=== PATIENT | female | born 1995 | race Caucasian/White ===

== ENCOUNTER 2017-09-23 11:30 | Emergency (ER) | payer OTHER, MEDICAID ==
[2017-09-23 11:45] VITALS: BP 119/92
[2017-09-23] MEDS ORDERED: NS 1,000 ML IV ONE (11:52)
[2017-09-23] MEDS ORDERED: ONDANSETRON 4 MG/2 ML VIAL IVP ONE (11:52)
--- NOTE | 2017-09-23 12:02 | EDPHY ---
H & P Stated Complaint: red bloody mucus diarrhea gen abd pain x 2 weeks, N/V Time Seen by Provider: 09/23/17 11:52 HPI/ROS: CHIEF COMPLAINT: Bloody diarrhea HISTORY OF PRESENT ILLNESS: The patient is a 22-year-old college student who comes to the emergency department her mom complaining of bloody red, mucousy diarrhea for the last 2 weeks. She states that this is happened intermittently in the past. She does not restrict her diet. She has not had a fever. No abdominal pain. She vomited yesterday nonbloody. No urinary symptoms. No vaginal symptoms. She denies risk of . No hemorrhoids. REVIEW OF SYSTEMS: Constitutional: denies: chills, fever, recent illness, recent injury EENTM: denies: blurred vision, double vision, nose congestion Respiratory: denies: cough, shortness of breath Cardiac: denies: chest pain, irregular heart rate, lightheadedness, palpitations Gastrointestinal/Abdominal: See HPI denies: abdominal pain, Genitourinary: denies: dysuria, frequency, hematuria, pain Musculoskeletal: denies: joint pain, muscle pain Skin: denies: lesions, rash, jaundice, bruising Neurological: denies: headache, numbness, paresthesia, tingling, dizziness, weakness Hematologic/Lymphatic: denies: blood clots, easy bleeding, easy bruising Immunologic/allergic: denies: HIV/AIDS, transplant EXAM: GENERAL: Well-appearing, well-nourished and in no acute distress. HEAD: Atraumatic, normocephalic. EYES: Pupils equal round and reactive to light, extraocular movements intact, sclera anicteric, conjunctiva are normal. ENT: TMs normal, nares patent, oropharynx clear without exudates. Moist mucous membranes. NECK: Normal range of motion, supple without lymphadenopathy or JVD. LUNGS: Breath sounds clear to auscultation bilaterally and equal. No wheezes rales or rhonchi. HEART: Regular rate and rhythm without murmurs, rubs or gallops. ABDOMEN: Soft, nontender, normoactive bowel sounds. No guarding, no rebound. No masses appreciated. Rectal: No visible hemorrhoids, normal tone, heme-negative. BACK: No CVA tenderness, no spinal tenderness, step-offs or deformities EXTREMITIES: Normal range of motion, no pitting or edema. No clubbing or cyanosis. NEUROLOGICAL: Cranial nerves II through XII grossly intact. Normal speech, normal gait. 5/5 strength, normal movement in all extremities, normal sensation PSYCH: Normal mood, normal affect. SKIN: Warm, dry, normal turgor, no visible rashes or lesions. Source: Patient Exam Limitations: No limitations - Medical/Surgical History Hx Asthma: No Hx Chronic Respiratory Disease: No Hx Diabetes: No Hx Cardiac Disease: No Hx Renal Disease: No Hx Cirrhosis: No Hx Alcoholism: No Hx HIV/AIDS: No Hx Splenectomy or Spleen Trauma: No Other PMH: episodes of bloody diarrhea in past -no work up done - Family History Significant Family History: No pertinent family hx - Social History Smoking Status: Never smoked Alcohol Use: None Constitutional: Initial Vital Signs Temperature (C) 36.4 C 09/23/17 11:35 Heart Rate 129 H 09/23/17 11:35 Respiratory Rate 18 09/23/17 11:35 Blood Pressure 119/92 H 09/23/17 11:35 O2 Sat (%) 94 09/23/17 11:35 O2 Delivery Mode Room Air Allergies/Adverse Reactions: No Known Allergies Allergy (Unverified 09/23/17 11:34) Home Medications: Medication Instructions Recorded NK [No Known Home Meds] 09/23/17 Medical Decision Making ED Course/Re-evaluation: The patient has symptoms consistent with ulcerative colitis or Crohn's or irritable bowel. Will obtain lab work. I feel that she would benefit from colonoscopy. I will refer her to GI. 12:40 p.m. the patient is doing well. No abdominal pain or tenderness. No diarrhea here in the ER. Discussed her lab work. I will have her follow up with GI. Differential Diagnosis: Partial list of the Differential diagnosis considered include but were not limited to; ulcerative colitis, hemorrhoids, Crohn's disease, dietary allergy, gastritis and although unlikely based on the history and physical exam, I also considered ischemia, volvulus, diverticulitis, perforation, urinary tract infection, vaginal bleeding, ovarian cyst, . I discussed these differential diagnoses and the plan with the patient as well as the usual and expected course. The patient understands that the diagnosis is provisional and that in medicine we are not always correct and that further workup is often warranted. Usual and customary warnings were given. All of the patient's questions were answered. The patient was instructed to return to the emergency department should the symptoms at all worsen or return, otherwise to followup with the physician as we discussed. - Data Points Laboratory Results: Laboratory Results 09/23/17 11:50 09/23/17 11:50 09/23/17 09/23/17 09/23/17 11:50 11:50 11:50 WBC 14.09 10^3/uL H 10^3/uL (3.80-9.50) RBC 5.58 10^6/uL H 10^6/uL (4.18-5.33) Hgb 16.6 g/dL H g/dL (12.6-16.3) Hct 46.5 % % (38.0-47.0) MCV 83.3 fL fL (81.5-99.8) MCH 29.7 pg pg (27.9-34.1) MCHC 35.7 g/dL g/dL (32.4-36.7) RDW 14.7 % % (11.5-15.2) Plt Count 434 10^3/uL H 10^3/uL (150-400) Sodium 137 mEq/L mEq/L (135-145) Potassium 3.5 mEq/L mEq/L (3.3-5.0) Chloride 90 mEq/L L mEq/L (97-110) Carbon Dioxide 23 mEq/l mEq/l (22-31) Anion Gap 24 mEq/L H mEq/L (8-16) BUN 15 mg/dL mg/dL (7-23) Creatinine 0.8 mg/dL mg/dL (0.6-1.0) Estimated GFR > 60 Glucose 97 mg/dL mg/dL (70-100) Calcium 10.1 mg/dL mg/dL (8.5-10.4) Beta HCG, Qual NEGATIVE Medications Given: Discontinued Medications Sodium Chloride (Ns) 1,000 mls @ 0 mls/hr IV ONCE ONE; Wide Open PRN Reason: Protocol Stop: 09/23/17 11:53 Last Admin: 09/23/17 12:00 Dose: 1,000 mls Ondansetron HCl (Zofran) 4 mg IVP EDNOW ONE Stop: 09/23/17 11:53 Last Admin: 09/23/17 12:01 Dose: 4 mg Departure - Departure Disposition: Home, Routine, Self-Care Clinical Impression: Bloody diarrhea Condition: Fair Instructions: Acute Diarrhea (ED) Referrals: NONE *PRIMARY CARE P,. [Primary Care Provider] - As per Instructions Raul Shrestha MD [Medical Doctor] - 2-3 days, call for appt.
== END 2017-09-23 12:30 | disposition home or self-care (01) ==
DX: K92.1 Melena (principal); E86.9 Volume depletion, unspecified
CPT/HCPCS: 96374; J2405

== ENCOUNTER 2017-09-25 18:15 | Inpatient (IN) | payer OTHER, MEDICAID ==
--- NOTE | 2017-09-25 18:32 | EDPHY ---
H & P Stated Complaint: abd pain Time Seen by Provider: 09/25/17 18:32 - Personal History LMP (Females 10-55): 1-7 Days Ago Current Tetanus/Diphtheria Vaccine: No Current Tetanus Diphtheria and Acellular Pertussis (TDAP): No - Medical/Surgical History Hx Asthma: No Hx Chronic Respiratory Disease: No Hx Diabetes: No Hx Cardiac Disease: No Hx Renal Disease: No Hx Cirrhosis: No Hx Alcoholism: No Hx HIV/AIDS: No Hx Splenectomy or Spleen Trauma: No Other PMH: episodes of bloody diarrhea in past -no work up done - Social History Smoking Status: Never smoked Constitutional: Initial Vital Signs Temperature (C) 36.5 C 09/25/17 18:21 Heart Rate 128 H 09/25/17 18:21 Respiratory Rate 16 09/25/17 18:21 Blood Pressure 92/71 L 09/25/17 18:21 O2 Sat (%) 95 09/25/17 18:21 O2 Delivery Mode Room Air Allergies/Adverse Reactions: No Known Allergies Allergy (Unverified 09/25/17 18:21) Home Medications: Medication Instructions Recorded NK [No Known Home Meds] 09/23/17 Medical Decision Making - Diagnostics Imaging Results: Imaging Impressions Abdomen CT 09/25/17 18:42 Impression: 1. Diffuse colitis worse in the ascending and transverse colon suggesting ulcerative colitis versus nonspecific infectious/inflammatory colitis. 2. No CT evidence of appendicitis, abscess or bowel obstruction. Findings and recommendations discussed with Emergency Department physician, Carlos Alberto Gutierrez MD, at 1919 hour, 09/25/2017. Final report concurs with initial preliminary interpretation. Imaging: Discussed imaging studies w/ freight caller Radiologist, I viewed and interpreted images myself ED Course/Re-evaluation: CHIEF COMPLAINT: Abdominal pain, bloody diarrhea HISTORY OF PRESENT ILLNESS: The patient is a 22 y/o female complaining of worsening abdominal pain, bloody diarrhea, decreased appetite, and nausea for 2 months. At it's worse, she is having a bowel movement every hour; this is a mixture of blood and fecal material. On 09/23/17, 2 days ago, she was seen in this emergency department and given IV fluids and Zofran for her symptoms. She was advised to follow up with a e learning specialist, but she has not done this yet. Today the pain was still not improved, so she presented to an urgent care. The physician at the urgent care, Dr. Adrian Harris, advised that she present to the emergency department again to be admitted. She is currently having abdominal and low back pain. Denies having imaging or stool sample studies preformed. Denies receiving a steroid or antibiotic prescription. Denies history of inflammatory bowel disease, Chron's Disease, ulcerative colitis. Denies shortness of breath, chest pain, urinary complaints, fever, paresthesias, numbness. REVIEW OF SYSTEMS: A 10 point review of systems was performed and is negative with the exception of the elements mentioned in the history of present illness. PHYSICAL EXAM: HR, BP, O2 Sat, RR. Temp noted General Appearance: Alert, well hydrated, appropriate, and non-toxic appearing. Head: Atraumatic without scalp tenderness or obvious injury Eyes: Conjunctival hemorrhage. Pupils equal, round, reactive to light and accommodation, EOMI, no injection. Ears: Clear bilaterally, no perforation, normal landmarks Nose: Atraumatic, no rhinorrhea, clear. Throat: There is no erythema or exudates, no lesions, normal tonsils, mucus membranes moist. Neck: Supple, nontender, no lymphadenopathy. Respiratory: No retractions, no distress, no wheezes, and no accessory muscle use. Lungs are clear to auscultation bilaterally. Cardiovascular: Regular rate and rhythm, no murmurs, rubs, or gallops. Good capillary refill all extremities. Gastrointestinal: Lower abdominal tenderness to palpation. Abdomen is soft, non -distended, no masses, no rebound, no guarding, no peritoneal signs. Musculoskeletal: Normal active ROM of all extremities, atraumatic. Neurological: Alert, appropriate, and interactive. Nonfocal neuro. Skin: No rashes, good turgor, no nodules on palpation. Past medical history: Denies Past surgical history: Denies Family history: Denies Social history: Mother at bedside, live in [place], [facility] DIAGNOSTICS/PROCEDURES/CRITICAL CARE TIME: Abdominopelvic CT: Diffuse ascending, transverse, and descending colitis. No abscesses or perforation. DIFFERENTIAL DIAGNOSIS: The differential diagnosis for the patient's abdominal pain included but was not limited to ovarian cyst, pelvic inflammatory disease, ovarian torsion, urinary tract infection, ectopic , cholecystitis, and appendicitis. MEDICAL DECISION MAKING: The patient is a 22 y/o female presenting with worsening abdominal pain, bloody diarrhea, decreased appetite, and nausea for 2 months. She was seen in the emergency department and urgent care within the last 2 days but has not had any imaging studies preformed. Labs and abdominopelvic CT ordered. 1L IV NS, 4mg IV Zofran, and 0.5mg IV Dilaudid administered. 1916: Spoke with Dr. Aquino, radiologist, patient has diffuse ascending, transverse, and descending colitis. No abscesses or perforation. Gastroenterology will be called. 1922: Consulted with Dr. Shrestha, e learning specialist, regarding patient. He agrees to consult on this patient and preform and endoscopy tomorrow. 10mg IV Decadron administered. Additional labs ordered. 1926: Reassessed patient and discussed laboratory and imaging findings. I have also discussed plan for admission which the patient and her mother are comfortable with. 1941: Consulted with hospitalist service, Dr. Mcfadden accepts admission of this patient. - Data Points Laboratory Results: Laboratory Results 09/25/17 19:07 09/25/17 19:07 09/25/17 09/25/17 09/25/17 19:34 19:08 19:07 WBC RBC Hgb POC Hgb 13.6 gm/dL gm/dL (12.6-16.3) Hct POC Hct 40 % % (38-47) MCV MCH MCHC RDW Plt Count MPV Neut % (Auto) Lymph % (Auto) [place] % (Auto) Eos % (Auto) Baso % (Auto) Nucleat RBC Rel Count Absolute Neuts (auto) Absolute Lymphs (auto) Absolute Monos (auto) Absolute Eos (auto) Absolute Basos (auto) Absolute Nucleated RBC Immature Gran % Immature Gran # Platelet Estimate POC Sodium 134 mEq/L L mEq/L (135-145) Sodium POC Potassium 2.4 mEq/L L* mEq/L (3.3-5.0) Potassium POC Chloride 93 mEq/L L mEq/L (97-110) Chloride Carbon Dioxide Anion Gap POC BUN 6 mg/dL L mg/dL (7-23) BUN Creatinine POC Creatinine 0.7 mg/dL mg/dL (0.6-1.0) Estimated GFR Glucose POC Glucose 88 mg/dL mg/dL (70-100) Calcium Iron TIBC Iron Saturation Ferritin Total Bilirubin Conjugated Bilirubin Unconjugated Bilirubin AST ALT Alkaline Phosphatase C-Reactive Protein Total Protein Albumin Lipase Beta HCG, Qual NEGATIVE Urine Color Pending Urine Appearance Pending Urine pH Pending Ur Specific [place] Pending Urine Protein Pending Urine Ketones Pending Urine Blood Pending Urine Nitrate Pending Urine Bilirubin Pending Urine Urobilinogen Pending Ur Leukocyte Esterase Pending Urine Glucose Pending 09/25/17 09/25/17 19:07 19:07 WBC 11.43 10^3/uL H 10^3/uL (3.80-9.50) RBC 4.49 10^6/uL 10^6/uL (4.18-5.33) Hgb 13.5 g/dL g/dL (12.6-16.3) POC Hgb Hct 37.4 % L % (38.0-47.0) POC Hct MCV 83.3 fL fL (81.5-99.8) MCH 30.1 pg pg (27.9-34.1) MCHC 36.1 g/dL g/dL (32.4-36.7) RDW 14.7 % % (11.5-15.2) Plt Count 291 10^3/uL 10^3/uL (150-400) MPV 11.2 fL fL (8.7-11.7) Neut % (Auto) Pending Lymph % (Auto) Pending Dallas % (Auto) Pending Eos % (Auto) Pending Baso % (Auto) Pending Nucleat RBC Rel Count Pending Absolute Neuts (auto) Pending Absolute Lymphs (auto) Pending Absolute Monos (auto) Pending Absolute Eos (auto) Pending Absolute Basos (auto) Pending Absolute Nucleated RBC Pending Immature Gran % Pending Immature Gran # Pending Platelet Estimate Pending POC Sodium Sodium 134 mEq/L L mEq/L (135-145) POC Potassium Potassium Pending POC Chloride Chloride 92 mEq/L L mEq/L (97-110) Carbon Dioxide 21 mEq/l L mEq/l (22-31) Anion Gap 21 mEq/L H mEq/L (8-16) POC BUN BUN 8 mg/dL mg/dL (7-23) Creatinine 0.6 mg/dL mg/dL (0.6-1.0) POC Creatinine Estimated GFR > 60 Glucose 82 mg/dL mg/dL (70-100) POC Glucose Calcium 8.8 mg/dL mg/dL (8.5-10.4) Iron Pending TIBC Pending Iron Saturation Pending Ferritin Pending Total Bilirubin 0.7 mg/dL mg/dL (0.1-1.4) Conjugated Bilirubin 0.4 mg/dL mg/dL (0.0-0.5) Unconjugated Bilirubin 0.3 mg/dL mg/dL (0.0-1.1) AST 22 IU/L IU/L (14-46) ALT 36 IU/L IU/L (9-52) Alkaline Phosphatase 44 IU/L IU/L (38-126) C-Reactive Protein Pending Total Protein 6.1 g/dL L g/dL (6.3-8.2) Albumin 3.5 g/dL g/dL (3.5-5.0) Lipase 103 IU/L IU/L (23-300) Beta HCG, Qual Urine Color Urine Appearance Urine pH Ur Specific [place] Urine Protein Urine Ketones Urine Blood Urine Nitrate Urine Bilirubin Urine Urobilinogen Ur Leukocyte Esterase Urine Glucose Medications Given: Discontinued Medications Dexamethasone (Decadron Injection) 10 mg IVP EDNOW ONE Stop: 09/25/17 19:26 Last Admin: 09/25/17 19:39 Dose: 10 mg Hydromorphone HCl (Dilaudid) 0.5 mg IVP EDNOW ONE Stop: 09/25/17 18:43 Last Admin: 09/25/17 19:31 Dose: 0.5 mg Sodium Chloride (Ns) 1,000 mls @ 0 mls/hr IV EDNOW ONE; Wide Open PRN Reason: Protocol Stop: 09/25/17 18:43 Last Admin: 09/25/17 19:31 Dose: 1,000 mls Ondansetron HCl (Zofran) 4 mg IVP EDNOW ONE Stop: 09/25/17 18:43 Last Admin: 09/25/17 19:27 Dose: 4 mg Point of Care Test Results: 09/25/17 19:08 POC Sodium 134 L POC Potassium 2.4 L* POC Chloride 93 L POC BUN 6 L POC Creatinine 0.7 POC Glucose 88 Departure - Departure Disposition: [facility] Inpatient Acute Clinical Impression: Colitis Diarrhea Qualifiers: Diarrhea type: unspecified type Qualified Code(s): R19.7 - Diarrhea, unspecified Condition: Fair Referrals: NONE *PRIMARY CARE P,. [Primary Care Provider] - As per Instructions Report Scribed for: Carlos Alberto Gutierrez Report Scribed by: Haily Carr Date of Report: 09/25/17 Time of Report: 18:33
[2017-09-25] MEDS ORDERED: ONDANSETRON 4 MG/2 ML VIAL IVP ONE (18:42)
[2017-09-25] MEDS ORDERED: NS 1,000 ML IV ONE (18:42)
[2017-09-25] MEDS ORDERED: HYDROmorphONE/DILAUDID 2 MG/ML INJ IVP ONE (18:42)
[2017-09-25] MEDS ORDERED: IOPAMIDOL (ISOVUE-300) 100 ML BTL ONE (18:47)
[2017-09-25] MEDS ORDERED: HYDROmorphONE/DILAUDID 1 MG/ML INJ ONE (19:13)
[2017-09-25 19:14] LABS: PLATELET COUNT 291 10^3/uL (150-400)
[2017-09-25] MEDS ORDERED: DEXAMETHASONE 10 MG/ML VIAL IVP ONE (19:25)
[2017-09-25] MEDS ORDERED: PROTOCOL MAGNESIUM 1 DOSE IV PRN (20:15)
[2017-09-25] MEDS ORDERED: METOCLOPRAMIDE 10 MG/2 ML VIAL IVP PRN (20:15)
[2017-09-25] MEDS ORDERED: PEG 3350/NA SULF,BICARB,CL/KCL (GAVILYTE-G) 4000 ML BTL PO ONE (20:15)
[2017-09-25] MEDS ORDERED: PROTOCOL POTASSIUM 1 DOSE MISC PRN (20:15)
[2017-09-25] MEDS ORDERED: PROTOCOL K PHOSPHATE 1 DOSE IV PRN (20:15)
[2017-09-25] MEDS ORDERED: OXYCODONE/APAP 5/325 TAB PO PRN (20:16)
[2017-09-25] MEDS ORDERED: ACETAMINOPHEN 325 MG TAB PO PRN (20:16)
[2017-09-25] MEDS ORDERED: LORazepam 2 MG/ML INJ IVP PRN (20:16)
[2017-09-25] MEDS ORDERED: LORazepam 0.5 MG TAB PO PRN (20:16)
[2017-09-25] MEDS ORDERED: POTASSIUM CL 20 MEQ TAB ONE (20:51)
[2017-09-25] MEDS: POTASSIUM CL 20 MEQ TAB PO SCH (21:02)
[2017-09-25] MEDS ORDERED: MBX SOLN 30 ML BOTTLE PO PRN (21:57)
[2017-09-25] MEDS: PROMETHAZINE HCL 25 MG/ML INJ IVP PRN (21:58)
[2017-09-25] MEDS: NS 1,000 ML IV SCH (22:03)
[2017-09-25] MEDS: POTASSIUM Cl (KCl) 100 ML IV SCH ×2 (22:24→23:46)
--- NOTE | 2017-09-25 22:35 | GHP ---
[f rep st] HISTORY AND PHYSICAL DATE OF ADMISSION: 09/25/2017 CHIEF COMPLAINT: Bloody diarrhea. HISTORY: This is a 22-year-old female with no significant past medical history who comes in for the 2nd time to this ER complaining of abdominal pain and bloody diarrhea. Patient notes she has had thi s going on for at least 6 weeks to 2 months. She notes the diarrhea is profuse, and she is often goi ng to the bathroom at least once an hour. This can often be associated with severe abdominal pain. For the last several days it has been so bad that she has been basically unable to eat or drink anyth ing. She notes that every time she eats or drinks anything, she immediately has diarrhea and severe abdominal pain. 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 She states that it largely affects her hips and knees but has affected essentially all joints in her body. PAST MEDICAL HISTORY: Denies. PAST SURGICAL HISTORY: Denies. FAMILY HISTORY: Father of unknown causes. Per the mother, he while in retirement. She does have a grandmother with MS. Otherwise, 1 brother who is healthy. SOCIAL HISTORY: Patient recently graduated from college. She drinks occasionally. She is a nonsmok er. REVIEW OF SYSTEMS: 10-point review of systems obtained and negative except as per HPI. PHYSICAL EXAMINATION: VITAL SIGNS: BP 102/84, heart rate 100, respiratory rate 16, O2 sats 94% on r oom air, temperature is 37.0. GENERAL APPEARANCE: Thin female. She is awake and alert. She is in mild distress. EYES: Anicteric. HENT: Dry mucous membranes. CARDIOVASCULAR: Mildly ta tiffanie, regular. No MRG. PULMONARY: CTA bilaterally. ABDOMEN: Soft, decreased bowel sounds, mild te nderness to palpation diffusely. EXTREMITIES: No clubbing, cyanosis, or edema. SKIN: Warm, dry, w ell perfused. NEURO/PSYCH: Oriented, appropriate, pleasant. CLINICAL DATA: Labs reviewed and notable for white blood cell count of 11.4, hematocrit of 37.4, parker telets of 291. Chemistry is notable for a potassium of 2.7. LFTs are unremarkable. CRP elevated at 24.3. Urinalysis notable for a specific gravity of greater than 1.06, 1+ blood, 2+ ketones. Abdominal CT personally reviewed and interpreted, shows diffuse colitis worse in the ascending and tr ansverse colon, suggestive of ulcerative colitis versus nonspecific infectious/inflammatory colitis. ASSESSMENT AND PLAN: This is a 22-year-old female presenting with a couple months of bloody diarrhea and abdominal pain with abdominal CT concerning for inflammatory bowel disease. 1. Diffuse colitis. Again, imaging concerning for inflammatory bowel disease. Patient has had at [facility] 6 weeks to 2 months of symptoms along with longstanding complaints of joint pain, possibly relat ed to underlying inflammatory bowel disease. Gastroenterology has been consulted, and we will procee d with a colonoscopy in the morning. We will attempt to prep her tonight, although Dr. Shrestha is aware that this may not be possible. Gastrointestinal pathogen panel has been ordered and is currently pe nding. 2. Hypokalemia in the setting of poor oral intake with nausea and vomiting. We will replete. We wi ll monitor on telemetry overnight. 3. Anemia. This is mild in the setting of a couple months of bloody diarrhea as per above. We will continue to monitor. 4. Inpatient status: Patient will require greater than 48-hour stay for evaluation and management o f above. Patient is new to my care. Old records reviewed and summarized as per HPI and past medical history. Care plan reviewed with Dr. Gutierrez in the emergency department. Further history obtained from hansel ent's mother present at bedside. /[id number]/MODL
[2017-09-26] MEDS: POTASSIUM Cl (KCl) 100 ML IV SCH ×4 (01:30→17:54)
[2017-09-26 04:21] LABS: PLATELET COUNT 245 10^3/uL (150-400)
[2017-09-26] MEDS: NS 1,000 ML IV SCH (04:47)
--- NOTE | 2017-09-26 07:57 | GCON ---
[f rep st] CONSULTATION DATE OF CONSULTATION: 09/26/2017 CONSULTING PHYSICIAN: Javi Mcfadden MD REASON FOR CONSULTATION: Bloody diarrhea/abdominal pain. CHIEF COMPLAINT: Bloody diarrhea, abdominal pain. HISTORY OF PRESENT ILLNESS: The patient is a 22-year-old female with no significant past medical history, who presents to [facility] with complaints of diffuse abdominal pain as well as bloody diarrhea. The patient states that she has had symptoms for approximately 6 weeks which has gotten progressively worse. She is now going to the bathroom >15x each day She states there is blood in most of her stools. She came to the ER last week and blood work was taken and was discharge. She describes a crampy pain throughout her abdomen. This pain can last hours. Her symptoms are exacerbated by oral intake with no alleviating factors. She denies a family history of ulcerative colitis or Crohn disease. She denies any recent travel or sick contacts. She has had some joint pain recently. I am being asked by Dr. Mcfadden to evaluate this patient in consultation regarding her bloody diarrhea/abdominal pain. PAST MEDICAL HISTORY: None. SURGICAL HISTORY: None. MEDICATIONS: None. ALLERGIES: NKDA. FAMILY HISTORY: No history of ulcerative colitis or Crohn disease. SOCIAL HISTORY: Positive alcohol. No significant tobacco use. PHYSICAL EXAMINATION: VITALS: Blood pressure 95/66, temperature 36.8, respirations 16, heart rate 82. GENERAL: Awake, alert, oriented x3. No distress. HEENT: Anicteric sclerae. Moist mucosa. NECK: No JVD. CARDIOVASCULAR: Regular rate and rhythm. Positive S1, S2. No murmurs, rubs, or gallops. LUNGS: Clear to auscultation bilaterally. No wheezing, rales, or rhonchi. ABDOMEN: Positive tenderness to midepigastrium. No rebound. Positive bowel sounds. EXTREMITIES: No clubbing, cyanosis, or edema. NEUROLOGICAL: Cranial nerves 2 through 12 are grossly intact. PSYCH: Normal affect. SKIN: No rash. MUSCULAR: No obvious joint effusions. LABORATORY DATA: WBC 10.23, hemoglobin 11.4. ESR 10. Potassium 3.7. C- reactive protein 24.3. CT scan-colitis. ASSESSMENT/PLAN: 1. Bloody diarrhea-with colitis on CT starting at the rectum. Positive abdominal pain. At this time, I suspect that she has inflammatory bowel disease. I would recommend to proceed with unprepped flexible sigmoidoscopy for further evaluation. The risks, benefits, and alternatives of the procedure were discussed in great detail with the patient. The risks of infection, bleeding, perforation, sedation were discussed. All questions answered and informed consent was obtained. Recommend to obtain stool studies. Thank you for the consultation! /[id number]/MODL MTDD
--- NOTE | 2017-09-26 10:48 | PDMN ---
Medical Necessity Medical necessity: [facility] M565 inflammatory bowel disease A-2 days: persistent abd. pain with bloody diarrhea X 6 weeks, hypokalemia. ( 2.4) , anemia,( iron saturation- 14), H/H 11.4/32.1, + heme stool- CT concerning for inflammatory bowel disease, GI consult pending, further monitoring, and tx needed anticipate > 2 midnights.
[2017-09-26] MEDS ORDERED: MAG HYDROX PO PRN (11:40)
[2017-09-26] MEDS ORDERED: SIMETH PO PRN (11:40)
[2017-09-26] MEDS ORDERED: ALUMINUM HYD PO PRN (11:40)
[2017-09-26] MEDS ORDERED: MAG HYDROX/AL HYDROX/SIMETH 30 ML UDCUP PO PRN (11:41)
[2017-09-26] MEDS ORDERED: fentaNYL 100 MCG/2 ML INJ ONE (11:46)
[2017-09-26] MEDS ORDERED: MIDAZOLAM 2 MG/2 ML VIAL ONE (11:46)
--- NOTE | 2017-09-26 12:14 | SOAPPROG ---
SOAP Progress Note Assessment/Plan: Assessment: Plan: 09/26/17 12:13 GI S/p Flex with bx. Suspect UC? Erythema with superficial ulcerations. Will start Solumedrol. Ok for clear liquid diet and advance. Objective: Vital Signs Temp Pulse Resp BP Pulse Ox 36.8 C 78 12 106/73 100 09/26/17 10:06 09/26/17 10:06 09/26/17 12:01 09/26/17 12:01 09/26/17 12:01 Microbiology 09/26/17 09:47 Gastrointestinal Tract Panel (PCR) - Final Stool No Organism Detected Laboratory Results 09/26/17 03:52 09/26/17 03:52 09/25/17 09/26/17 09/27/17 05:59 05:59 05:59 Intake Total 1100 Balance 1100 ICD10 Worksheet Patient Problems: Problems Problem Status Onset Colitis Acute Diarrhea Acute
--- NOTE | 2017-09-26 12:15 | PDPROPOC ---
Sedation Plan of Care Sedation Plan of Care: vital signs stable, mental status noted, patient educated of risks, benefits, alternatives, patient can tolerate sedation ASA Classification: ASA 2 Planned drugs: fentanyl, midazolam Mallampati Score: Class 1 Mallampati Reference Image: Patient passed 3-3-2 rule?: Yes
[2017-09-26] MEDS: HYDROmorphONE/DILAUDID 1 MG/ML INJ IVP PRN (13:39)
--- NOTE | 2017-09-26 14:27 | ASMTCMCOM ---
CM Note CM Note Notes: 09/26/2017 Case Management Note Discussed pt during rounds this morning. Pt admitted for probable ulcerative colitis and bloody diarrhea. Pt mom has been present during hospital stay. There are no case management d/c needs identified d/t family support, age of pt and independence in ADL's prior to admission. Case Mangement d/c poc: independent with follow up as directed. Case Management available if needs change. Date Signed: 09/26/2017 02:26 PM Electronically Signed By:Jeri Trent RN
--- NOTE | 2017-09-26 14:28 | HOSPPROG ---
Hospitalist Progress Note Assessment/Plan: # Diffuse colitis - pt with marked nausea overnight - unable to tolerate golytely prep- suspicious for inflammatory bowel disease CT abd (personally reviewed and interpreted) diffuse colitis worse ascending and transverse Oxygen saturations 94% on room air - sigmoidoscopy today - cont IVF - NPO for imaging # Severe hypokalemia 2/2 diarrhea - 2.7-> 3.7 today - cont protocol # hypovolemic hyponatremia - 2/2 diarrhea - 134-> 137 this am aft IVF - continue IVf until PO adequate # Acute leukocytosis- suspect 2/2 colitis - cont to follow # proph - lovenox # diet - NPO until cleared for intake # dispo - > 2MN as requires ongoing supportive care monitoring and diagnostics I have discussed the case with the RN we will continue the potassium protocol this afternoon Subjective: Tired Objective: Vital Signs Temp Pulse Resp BP Pulse Ox 36.4 C 88 11 L 90/76 L 98 09/26/17 13:40 09/26/17 13:40 09/26/17 13:40 09/26/17 13:40 09/26/17 13:40 Microbiology 09/26/17 09:47 Gastrointestinal Tract Panel (PCR) - Final Stool No Organism Detected Laboratory Results 09/26/17 03:52 09/26/17 03:52 09/25/17 09/26/17 09/27/17 05:59 05:59 05:59 Intake Total 1100 400 Balance 1100 400 - Physical Exam Constitutional: appears nourished Eyes: anicteric sclera Ears, Nose, Mouth, Throat: dry mucous membranes Cardiovascular: regular rate and rhythym Respiratory: no respiratory distress Gastrointestinal: tenderness, No normoactive bowel sounds, No guarding, No rebound Genitourinary: no bladder fullness Skin: warm Musculoskeletal: No asymmetric calves Neurologic: AAOx3 Psychiatric: interacting appropriately Lymph, Heme, Immunologic: no cervical LAD ICD10 Worksheet Patient Problems: Problems Problem Status Onset Colitis Acute Diarrhea Acute
[2017-09-26] MEDS: POTASSIUM CL 20 MEQ TAB PO SCH (15:11)
[2017-09-26] MEDS: PROMETHAZINE HCL 25 MG/ML INJ IVP PRN (17:51)
[2017-09-26] MEDS: methylPREDNISolone SOD SUCC 125 MG/2 ML VIAL IVP SCH ×2 (18:07→23:18)
[2017-09-26] MEDS: oxyCODONE IR 5 MG TAB PO PRN (18:07)
[2017-09-26] MEDS: LR 1,000 ML IV SCH (20:14)
--- NOTE | 2017-09-26 20:27 | GIREPORT ---
Formerly [facility], [facility] Surgical Services - Endoscopy Department Patient Name: Agueda Ledesma Procedure Date: 09/26/2017 11:54 AM Patient Type: Inpatient Attending MD/ ER Physician: Raul Shrestha MD Procedure: Flexible Sigmoidoscopy Indications: Abdominal pain, Hematochezia, Diarrhea Patient Profile: 22 year old female presents for evaluation of colitis seen on imaging/abdominal pain/hematochezia/diarrhea. Providers: Raul Shrestha MD Medicines: Fentanyl 100 micrograms IV, Midazolam 4 mg IV Complications: No immediate complications. Estimated blood loss: Minimal. Description of Procedure: After obtaining informed consent, the endoscope was passed under direct vision. Throughout the procedure, the patient's blood pressure, pulse, and oxygen saturations were monitored continuously. The Colonoscope with irrigation channel was introduced through the anus and advanced to the sigmoid colon. The flexible sigmoidoscopy was accomplished without difficulty. The patient tolerated the procedure well. The quality of th e bowel preparation was adequate. Moderate Sedation: Moderate (conscious) sedation was administered by the endoscopy nurse eladio vallecillo supervised by the endoscopist. The patient's oxygen saturation, heart r ate, blood pressure and response to care were monitored. Total physician intraservice time was 13 minutes. Findings: The perianal and digital rectal examinations were normal. Pertinent negatives include no palpable rectal lesions. A diffuse area of moderately erythematous mucosa with loss of vacular pattern and superficial ulcerations was found in the whole examined rec rubina and in the sigmoid colon. Biopsies were taken with a cold forceps for histology. Estimated Blood Loss: Estimated blood loss was minimal. Post Op Diagnosis: - Erythematous mucosa with loss of vascular pattern and superficial ulcerations in the rectum and in the sigmoid colon. - Suspect UC. Will start Solumedrol. Recommendation: - Return patient to hospital [facility] for ongoing care. - Clear liquid diet. - Await pathology results. - Start Solumedrol - Thank you for allowing me to participate in the care of your patient. Attending Participation: I personally performed the entire procedure. Raul Shrestha MD Raul Shrestha MD 09/26/2017 8:26:33 PM This report has been signed electronicallyRaul Shrestha MD Number of Addenda: 0 Note Initiated On: 09/26/2017 11:54 AM [email or web address]
[2017-09-26] MEDS ORDERED: POTASSIUM CL 10 MEQ TAB PO ONE (21:02)
[2017-09-27] MEDS: oxyCODONE IR 5 MG TAB PO PRN (02:22)
[2017-09-27] MEDS: ONDANSETRON DISINTEGRATING 4 MG TAB PO PRN (02:22)
[2017-09-27] MEDS: methylPREDNISolone SOD SUCC 125 MG/2 ML VIAL IVP SCH ×4 (05:13→23:19)
[2017-09-27] MEDS: HYDROmorphONE/DILAUDID 1 MG/ML INJ IVP PRN (06:02)
--- NOTE | 2017-09-27 07:48 | SOAPPROG ---
SUE Progress Note Assessment/Plan: Assessment: Plan: 09/26/17 12:13 GI S/p Flex with bx. Suspect UC? Erythema with superficial ulcerations. Will start Solumedrol. Ok for clear liquid diet and advance. 09/27/17 07:46 A/P 1. Colitis- suspect UC? Await biopsy results. Recommend to continue IV steroids. Still having complaints of pain. Subjective: cc: Follow up colitis Feeling better but still having abdominal pain. + Diarrhea but improving. Objective: Vital Signs Temp Pulse Resp BP Pulse Ox 36.7 C 79 17 106/74 96 09/27/17 04:00 09/27/17 04:00 09/27/17 04:00 09/27/17 04:00 09/27/17 04:00 Microbiology 09/26/17 09:47 Gastrointestinal Tract Panel (PCR) - Final Stool No Organism Detected Laboratory Results 09/26/17 03:52 09/27/17 04:30 09/26/17 09/27/17 09/28/17 05:59 05:59 05:59 Intake Total 1100 1522 Output Total 100 Balance 1100 1422 Physical Exam - Physical Exam General Appearance: alert, no apparent distress EENT: No scleral icterus (R), No scleral icterus (L) Respiratory: lungs clear, normal breath sounds Cardiac/Chest: regular rate, rhythm, No bradycardia, No tachycardia Abdomen: soft, No non-tender (minimal tenderness), No distended, No guarding, No rebound Neuro/Psych: alert, normal mood/affect, oriented x 3, 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
[2017-09-27] MEDS: ONDANSETRON 4 MG/2 ML VIAL IVP PRN ×2 (08:45→23:19)
[2017-09-27] MEDS: POTASSIUM CL 20 MEQ TAB PO SCH (08:46)
--- NOTE | 2017-09-27 10:40 | HOSPPROG ---
Hospitalist Progress Note Assessment/Plan: # Diffuse colitis - still with abd discomfort - suspicious for inflammatory bowel disease - CT abd (personally reviewed and interpreted) diffuse colitis worse ascending and transverse - sigmoidoscopy today --> ?UC, biopsies pending - cont IVF at 50ml/hr - Cont CLD # Severe hypokalemia 2/2 diarrhea - cont protocol # hypovolemic hyponatremia - 2/2 diarrhea - continue IVf until PO adequate # Acute leukocytosis- suspect 2/2 colitis - cont to follow # proph - lovenox # diet - CLD # dispo - > 2MN as requires ongoing supportive care monitoring and diagnostics Plan: -Per above -GI reccs -Cont IV Solu-Medrol -Cont IVF -Await biopsies Subjective: still with some abd discomfort. + diarrhea. NO cp or sob. Still on a CLD Objective: Vital Signs Temp Pulse Resp BP Pulse Ox 36.6 C 75 14 105/78 95 09/27/17 08:00 09/27/17 08:00 09/27/17 08:00 09/27/17 08:00 09/27/17 08:00 Microbiology 09/26/17 09:47 Gastrointestinal Tract Panel (PCR) - Final Stool No Organism Detected Laboratory Results 09/26/17 03:52 09/27/17 04:30 09/26/17 09/27/17 09/28/17 05:59 05:59 05:59 Intake Total 1100 1522 780 Output Total 100 200 Balance 1100 1422 580 - Physical Exam Constitutional: no apparent distress Eyes: PERRL, EOMI Ears, Nose, Mouth, Throat: moist mucous membranes, hearing normal Cardiovascular: regular rate and rhythym, No edema Respiratory: no respiratory distress, no rales or rhonchi, clear to auscultation Gastrointestinal: normoactive bowel sounds, tenderness (mild generalized TTP), No guarding, No rebound, No distension Skin: warm Neurologic: AAOx3 Psychiatric: interacting appropriately, not anxious, not encephalopathic Lymph, Heme, Immunologic: No petechiae ICD10 Worksheet Patient Problems: Problems Problem Status Onset Colitis Acute Diarrhea Acute
[2017-09-27] MEDS: LR 1,000 ML IV SCH (15:47)
[2017-09-28] MEDS: methylPREDNISolone SOD SUCC 125 MG/2 ML VIAL IVP SCH ×4 (05:43→23:37)
[2017-09-28 05:54] LABS: PLATELET COUNT 219 10^3/uL (150-400)
[2017-09-28] MEDS ORDERED: POTASSIUM CL 10 MEQ TAB PO ONE ×2 (09:02→19:31)
[2017-09-28] MEDS: LR 1,000 ML IV SCH (09:39)
[2017-09-28] MEDS: oxyCODONE IR 5 MG TAB PO PRN ×2 (12:16→16:28)
[2017-09-28] MEDS: ONDANSETRON DISINTEGRATING 4 MG TAB PO PRN ×2 (12:18→16:29)
--- NOTE | 2017-09-28 13:32 | HOSPPROG ---
Hospitalist Progress Note Assessment/Plan: 22 yo female admitted with diffuse colitis She had a regular diet this morning and is now c/o of abd pain # Diffuse colitis - still with abd discomfort - suspicious for inflammatory bowel disease - CT abd (personally reviewed and interpreted) diffuse colitis worse ascending and transverse - sigmoidoscopy c/w erythematous ulceration concerning for UC, biopsies pending - Failed advancement of her diet this morning, will switch back to a CLD # Severe hypokalemia 2/2 diarrhea - cont protocol # hypovolemic hyponatremia - 2/2 diarrhea - continue IVf until PO adequate # Acute leukocytosis- suspect 2/2 colitis - cont to follow # proph - lovenox # diet - CLD # dispo - > 2MN as requires ongoing supportive care monitoring and diagnostics Plan: -Per above -GI reccs -Cont IV Solu-Medrol, will transition to PO soon -Await biopsies Subjective: had a regular diet earliet today, but now with abd pain. no emesis. Objective: Vital Signs Temp Pulse Resp BP Pulse Ox 36.3 C 66 16 91/64 L 96 09/28/17 07:42 09/28/17 07:42 09/28/17 07:42 09/28/17 07:42 09/28/17 07:42 Laboratory Results 09/28/17 04:52 09/28/17 04:52 09/27/17 09/28/17 09/29/17 05:59 05:59 05:59 Intake Total 1522 1430 553 Output Total 100 1400 Balance 1422 30 553 - Physical Exam Constitutional: no apparent distress Eyes: PERRL, EOMI Ears, Nose, Mouth, Throat: moist mucous membranes, hearing normal Cardiovascular: regular rate and rhythym, no murmur, rub, or gallop, No edema Respiratory: no respiratory distress, no rales or rhonchi, clear to auscultation Gastrointestinal: normoactive bowel sounds, tenderness (generalized ttp) Skin: warm Neurologic: AAOx3 Psychiatric: interacting appropriately, not anxious, not encephalopathic Lymph, Heme, Immunologic: No petechiae ICD10 Worksheet Patient Problems: Problems Problem Status Onset Colitis Acute Diarrhea Acute
--- NOTE | 2017-09-28 21:09 | SOAPPROG ---
SUE Progress Note Assessment/Plan: Assessment: Plan: 09/26/17 12:13 GI S/p Flex with bx. Suspect UC? Erythema with superficial ulcerations. Will start Solumedrol. Ok for clear liquid diet and advance. 09/27/17 07:46 A/P 1. Colitis- suspect UC? Await biopsy results. Recommend to continue IV steroids. Still having complaints of pain. 09/28/17 21:06 A/P 1. Colitis- s/p Flex sig with bx. Pathology consistent with IBD and appearance consistent with UC. C. Dif -. On steroids and improving. Still complaining of pain. Will start a trial of dicyclomine. Will also check a CRP. Continue IV steroids. Subjective: cc: Follow up colitis Diarrhea much improved. Has complaints of abdominal pain. Objective: Vital Signs Temp Pulse Resp BP Pulse Ox 36.6 C 88 18 91/64 L 96 09/28/17 15:14 09/28/17 15:14 09/28/17 15:14 09/28/17 15:14 09/28/17 15:14 Laboratory Results 09/28/17 04:52 09/28/17 18:15 09/27/17 09/28/17 09/29/17 05:59 05:59 05:59 Intake Total 1522 1430 653 Output Total 100 1400 Balance 1422 30 653 Physical Exam - Physical Exam General Appearance: alert, no apparent distress EENT: No scleral icterus (R), No scleral icterus (L) Respiratory: lungs clear, normal breath sounds, No crackles, No rales, No rhonchi Cardiac/Chest: regular rate, rhythm Abdomen: non-tender, soft, No distended, No rebound Skin: normal color, warm/dry Neuro/Psych: normal mood/affect, oriented x 3, 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
[2017-09-29] MEDS: oxyCODONE IR 5 MG TAB PO PRN ×3 (03:22→11:45)
[2017-09-29] MEDS: DICYCLOMINE 10 MG CAP PO SCH ×4 (05:52→20:15)
[2017-09-29] MEDS: methylPREDNISolone SOD SUCC 125 MG/2 ML VIAL IVP SCH ×2 (05:53→11:46)
[2017-09-29] MEDS: ONDANSETRON DISINTEGRATING 4 MG TAB PO PRN (11:28)
--- NOTE | 2017-09-29 15:07 | HOSPPROG ---
Hospitalist Progress Note Assessment/Plan: 22 yo female admitted with diffuse colitis path is back and c/w UC # UC/Diffuse colitis - still with abd discomfort - suspicious for inflammatory bowel disease - CT abd (personally reviewed and interpreted) diffuse colitis worse ascending and transverse - sigmoidoscopy c/w erythematous ulceration concerning for UC, biopsies pending - improving # Severe hypokalemia 2/2 diarrhea - cont protocol # hypovolemic hyponatremia - 2/2 diarrhea - continue IVf until PO adequate # Acute leukocytosis- suspect 2/2 colitis - cont to follow # proph - lovenox # diet - CLD # dispo - > 2MN as requires ongoing supportive care monitoring and diagnostics Plan: -start regular diet -steroids per GI, still on IV -Hopefully home soon Subjective: mild abdominal discomfort. no cp or sob. Objective: Vital Signs Temp Pulse Resp BP Pulse Ox 36.5 C 63 16 98/70 L 94 09/29/17 07:18 09/29/17 07:18 09/29/17 07:18 09/29/17 07:18 09/29/17 07:18 Laboratory Results 09/28/17 04:52 09/29/17 04:23 09/28/17 09/29/17 09/30/17 05:59 05:59 05:59 Intake Total 1430 903 Output Total 1400 400 200 Balance 30 503 -200 - Physical Exam Constitutional: no apparent distress Eyes: PERRL Ears, Nose, Mouth, Throat: moist mucous membranes, hearing normal Cardiovascular: regular rate and rhythym Respiratory: no respiratory distress Gastrointestinal: normoactive bowel sounds, tenderness Genitourinary: no bladder fullness Skin: warm Neurologic: AAOx3 Psychiatric: interacting appropriately, not anxious, not encephalopathic ICD10 Worksheet Patient Problems: Problems Problem Status Onset Colitis Acute Diarrhea Acute
--- NOTE | 2017-09-29 16:22 | SOAPPROG ---
SUE Progress Note Assessment/Plan: Assessment: Plan: 09/26/17 12:13 GI S/p Flex with bx. Suspect UC? Erythema with superficial ulcerations. Will start Solumedrol. Ok for clear liquid diet and advance. 09/27/17 07:46 A/P 1. Colitis- suspect UC? Await biopsy results. Recommend to continue IV steroids. Still having complaints of pain. 09/28/17 21:06 A/P 1. Colitis- s/p Flex sig with bx. Pathology consistent with IBD and appearance consistent with UC. C. Dif -. On steroids and improving. Still complaining of pain. Will start a trial of dicyclomine. Will also check a CRP. Continue IV steroids. 09/29/17 16:19 A/P 1. Ulcerative colitis- endoscopic appearance and pathology consistent. By CT scan, appears to be almaraz colitis. ON IV steroids and improving. However, still complaining of abdominal pain. Will start oral steroids today with overlap of IV steroids. CRP decreasing. Discontinue IV steroids soon. Discharge tomorrow if tolerates oral prednisone. Subjective: cc: Follow up on colitis Improved. BMs decreasing. Less pain. Objective: Vital Signs Temp Pulse Resp BP Pulse Ox 36.6 C 74 12 98/66 L 98 09/29/17 15:10 09/29/17 15:10 09/29/17 15:10 09/29/17 15:10 09/29/17 15:10 Laboratory Results 09/28/17 04:52 09/29/17 04:23 09/28/17 09/29/17 09/30/17 05:59 05:59 05:59 Intake Total 1430 903 936 Output Total 1400 400 200 Balance 30 503 736 Physical Exam - Physical Exam General Appearance: alert, no apparent distress EENT: No scleral icterus (R), No scleral icterus (L) Respiratory: lungs clear, normal breath sounds, No rales, No rhonchi Cardiac/Chest: regular rate, rhythm Abdomen: normal bowel sounds, non-tender, soft, No guarding, No rebound Skin: normal color, warm/dry Extremities: non-tender Neuro/Psych: no motor/sensory deficits, alert, normal mood/affect ICD10 Worksheet Patient Problems: Problems Problem Status Onset Colitis Acute Diarrhea Acute
[2017-09-29] MEDS: predniSONE 20 MG TAB PO SCH (17:55)
[2017-09-29] MEDS ORDERED: methylPREDNISolone SOD SUCC 125 MG/2 ML VIAL IVP ONE (18:15)
[2017-09-29] MEDS ORDERED: POTASSIUM CL 10 MEQ TAB PO ONE (19:30)
[2017-09-30] MEDS: DICYCLOMINE 10 MG CAP PO SCH ×3 (05:43→16:20)
[2017-09-30] MEDS: oxyCODONE IR 5 MG TAB PO PRN ×2 (07:06→12:50)
[2017-09-30] MEDS: ONDANSETRON DISINTEGRATING 4 MG TAB PO PRN ×2 (07:06→12:49)
[2017-09-30 08:33] VITALS: BP 98/67
[2017-09-30] MEDS: predniSONE 20 MG TAB PO SCH (08:47)
[2017-09-30] MEDS ORDERED: POTASSIUM CL 10 MEQ TAB PO ONE (08:49)
--- NOTE | 2017-09-30 13:14 | SOAPPROG ---
SUE Progress Note Assessment/Plan: Assessment: A/ colitis overall better with steroids, discussed that it will take time up to 8 weeks for heeling expect symptoms to continue to improve with time Plan: D/C solumedrol Prednisone 40 mg daily with taper by 10 mg a week Advance diet as tolerated but avoid high fiber Dicyclomine as needed for pain OK to d/c home Please have pt call GI office on Monday for follow up appointment in 2 weeks Will sign off 09/30/17 13:10 Subjective: cc abd pain pt with new dx of UC overall better with steroids Objective: Vital Signs Temp Pulse Resp BP Pulse Ox 36.7 C 74 16 98/67 L 97 09/30/17 08:00 09/30/17 08:00 09/30/17 08:00 09/30/17 08:00 09/30/17 08:00 Laboratory Results 09/28/17 04:52 09/30/17 04:20 09/29/17 09/30/17 10/01/17 05:59 05:59 05:59 Intake Total 903 1186 Output Total 400 200 500 Balance 503 986 -500 Physical Exam - Physical Exam General Appearance: alert Respiratory: lungs clear Cardiac/Chest: regular rate, rhythm Abdomen: non-tender, No organomegaly ICD10 Worksheet Patient Problems: Problems Problem Status Onset Colitis Acute Diarrhea Acute
--- NOTE | 2017-09-30 15:37 | PDDCSUM ---
Discharge Summary Discharge Summary: 22 yo female admitted with diffuse colitis path is c/w UC She is tolerating a regular diet She will be treated with a steroid taper She will f/u with GI in 1-3 weeks DDX: # UC/Diffuse colitis - CT abd (personally reviewed and interpreted) diffuse colitis worse ascending and transverse - sigmoidoscopy c/w erythematous ulceration concerning for UC, biopsies with likely UC # Severe hypokalemia 2/2 diarrhea - resolved # hypovolemic hyponatremia - 2/2 diarrhea - resolved # Acute leukocytosis- resolved Exam: NAD AAOX3 RRR CTA B S/NT/ND MEDS: SEE MED REC F/U: PER ABOVE TOTAL TIME SPENT ON D/C IS 35 MINS
== END 2017-09-30 17:58 | disposition home or self-care (01) | DRG 386 ==
LOC: OBSVTOIN 19:34 → F2W 21:22 → F3E 09-26 19:26
PROVIDERS: ADMIT Internal Medicine; ATTEND Internal Medicine
PROC: 0DBN8ZX Excision of Sigmoid Colon, Via Natural or Artificial Opening Endoscopic, Diagnostic (ICD-10-PCS; principal; 2017-09-25)
DX: K51.90 Ulcerative colitis, unspecified, without complications (principal); E87.6 Hypokalemia; E87.1 Hypo-osmolality and hyponatremia; D72.829 Elevated white blood cell count, unspecified
CPT/HCPCS: 82947-QW; J1100; J1170; J2250; J2405; J2550; J2930; J3010; J3480; J7512; Q9967